=== PATIENT | female | born 1945 | race African-American/Black ===

== ENCOUNTER 2018-03-31 17:50 | Emergency (ER) | payer MEDICARE ==
--- NOTE | 2018-03-31 18:19 | ER Document Report ---
ED General - General Stated Complaint: FALL,MOUTH PAIN Time Seen by Provider: 03/31/18 18:11 Mode of Arrival: Medic Information source: Patient, [facility] Records Notes: 72-year-old female with hypertension, coronary artery disease, diabetes, angina, previous multiple CVAs presents after a trip and fall at home just prior to arrival. Patient currently complaining of left upper extremity pain, left knee pain and left-sided facial pain. Patient states that she was walking from the day and into the laundry room where there is a step up. Patient states that she failed to raise her leg and fell forward striking her face and chest against the tile floor. She denies loss of consciousness. She is on Plavix and aspirin. Patient denies any headache, blurred vision, nausea, vomiting, abdominal pain. Patient also denies any preceding chest pain, shortness of breath or lightheadedness. Patient does came in this morning visiting from [place]. - HPI Onset: Just prior to arrival Onset/Duration: Sudden Quality of pain: Achy, Stabbing Severity: Moderate Associated symptoms: Body/muscle aches, Chest pain. denies: Headache, Nausea, Vomiting, Shortness of breath, Weakness Exacerbated by: Movement Relieved by: Remaining still Similar symptoms previously: No Recently seen / treated by doctor: No - Related Data Allergies/Adverse Reactions: latex Allergy (Verified 03/31/18 18:24) Past Medical History - General Information source: Patient, Relative - Social History Smoking Status: Never Smoker Frequency of alcohol use: None Drug Abuse: None Lives with: Alone, Family Family History: Reviewed & Not Pertinent Patient has suicidal ideation: No Patient has homicidal ideation: No - Past Medical History Cardiac Medical History: Reports: Hx Coronary Artery Disease, Hx Hypertension, Hx Peripheral Vascular Disease, Other - Angina Neurological Medical History: Reports: Hx Cerebrovascular Accident Endocrine Medical History: Reports: Hx Diabetes Mellitus Type 2 Review of Systems - Review of Systems Notes: REVIEW OF SYSTEMS: CONSTITUTIONAL : Denies fever, chills, or sweats. Denies recent illness. Denies weight loss, recent hospitalizations. EENT: Denies visual changes, eye pain. Denies sore throat, oral lesions, difficulty swallowing. CARDIOVASCULAR: Denies chest pain. Denies palpitations. Denies lower extremity edema. RESPIRATORY: Denies cough. Denies shortness of breath, wheezing. GASTROINTESTINAL: Denies abdominal pain or distention. Denies nausea, vomiting, or diarrhea. Denies blood in vomitus, stools, or per rectum. Denies black, tarry stools. Denies constipation. GENITOURINARY: Denies difficulty urinating, painful urination, frequency, blood in urine, or vaginal discharge. MUSCULOSKELETAL: + Back pain, left shoulder and left knee pain. SKIN: + Abrasions to upper and lower lip, left side of the face. HEMATOLOGIC : Denies easy bruising or bleeding. LYMPHATIC: Denies swollen glands. NEUROLOGICAL: Denies confusion or altered mental status. Denies loss of consciousness. Denies dizziness or lightheadedness. Denies headache. Denies weakness or paralysis. Denies problems difficulty with ambulation, slurred speech. Denies sensory loss, numbness, or tingling. Denies seizures. PSYCHIATRIC: Denies anxiety or stress. Denies depression, suicidal ideation, or homicidal ideation. Denies visual or auditory hallucinations. Physical Exam - Vital signs Vitals: Resp Pulse Ox 18 100 03/31/18 18:02 03/31/18 18:02 - Notes Notes: PHYSICAL EXAMINATION: GENERAL: Well-appearing, well-nourished and in no acute distress. GCS 15 HEAD: Superficial abrasions to the upper and lower lip. Superficial abrasions along the left side of face. No cephalohematoma. Midface stable. No malocclusion. EYES: Pupils equal round and reactive to light, extraocular movements intact, sclera anicteric, conjunctiva are normal. ENT: Nares patent, oropharynx clear without exudates. Moist mucous membranes. No hemanotympanum . No blood in nares. No dental fracture NECK: Normal range of motion, supple without lymphadenopathy. Trachea midline. No midline tenderness of the cervical spine. LUNGS: Breath sounds clear to auscultation bilaterally and equal. No wheezes rales or rhonchi. Anterior chest wall pain with palpation, no ecchymosis, no crepitus. HEART: Regular rate and rhythm without murmurs. Pulses intact all throughout. ABDOMEN: Soft, nontender, nondistended abdomen. No guarding, no rebound. No masses appreciated. Musculoskeletal: Normal range of motion, no pitting or edema. No cyanosis. Hip non tender, stable. Pelvis stable. Left knee with superficial abrasion, mild ecchymosis. Full range of motion of the left knee although painful. Distal pulse intact. Left upper extremity tenderness along the humerus without obvious deformity. Radial pulse intact. NEUROLOGICAL: Cranial nerves grossly intact. Normal speech. Normal sensory, motor, and reflex exams. PSYCH: Normal mood, normal affect. SKIN: Superficial abrasions to the left face, upper and lower lip, left knee. Course - Re-evaluation Re-evalutation: Facial Bones CT 03/31/18 18:19 IMPRESSION: No acute osseous abnormality. Head CT 03/31/18 18:19 IMPRESSION: No evidence of acute intracranial abnormality. EVIDENCE OF ACUTE STROKE: NO. Cervical Spine CT 03/31/18 18:20 IMPRESSION: Facet arthropathy. No acute findings. Chest X-Ray 03/31/18 18:20 IMPRESSION: NO ACUTE RADIOGRAPHIC FINDING IN THE CHEST. Thoracic Spine CT 03/31/18 18:20 IMPRESSION: NORMAL CT OF THE THORACIC SPINE. Forearm X-Ray 03/31/18 18:23 IMPRESSION: NEGATIVE STUDY OF THE LEFT FOREARM. NO RADIOGRAPHIC EVIDENCE OF ACUTE INJURY. Humerus X-Ray 03/31/18 18:23 IMPRESSION: NEGATIVE STUDY OF THE LEFT HUMERUS. NO RADIOGRAPHIC EVIDENCE OF ACUTE INJURY. Knee X-Ray 03/31/18 18:23 IMPRESSION: NEGATIVE STUDY OF THE LEFT KNEE. NO RADIOGRAPHIC EVIDENCE OF ACUTE INJURY. Temp Pulse Resp BP Pulse Ox 98.3 F 18 157/54 H 99 03/31/18 20:24 03/31/18 20:01 03/31/18 20:01 03/31/18 20:01 03/31/18 18:28 72-year-old female presents after a trip and fall at home. Vital signs reviewed and patient is mildly hypertensive, not tachycardic or hypoxic. She does not appear toxic or dehydrated. She is in no acute distress. Exam is significant for superficial abrasions to the lips, left side of her face and left knee. Vital signs reviewed upon arrival and patient is afebrile, mildly hypertensive but not hypoxic or tachycardic. Presentation of a well appearing elderly patient in no acute distress, vitals within normal limits after a mechanical fall. Patient denies a syncopal episode as the cause for today's fall. No focal neurologic deficits on exam, no evidence of basilar skull fracture on exam without evidence of hemotympanum, raccoon eyes, or periauricular hematoma. No papilledema. Patient is on aspirin and Plavix. GCS is 15. No loss of co nsciousness. No episodes of vomiting. However, based on patient's age a CT of the head has been obtained which is negative for any acute intracranial bleed. Likewise, patient was unable to be clinically cleared due to age by [place] cervical spine criteria. A CT of the cervical spine was also obtained and likewise is negative for any acute fracture. No indication for further imaging of the cervical spine. Patient has no focal deformities or limited range of motion in any joint space. Patient does have pain with palpation to the anterior chest x-ray was obtained which showed no acute process. Abdominal exam is benign without any focal tenderness, shortness of breath, or bruising over the chest or abdominal wall. Patient has no flank tenderness. X-ray of the knee and humerus were obtained and also showed no acute fracture, dislocation. At this time will discharge with return precautions and follow-up recommendations. Verbal discharge instructions given a the bedside and opport unity for questions given. Medication warnings reviewed. Patient is in agreement with this plan and has verbalized understanding of return precautions and the need for primary care follow-up in the next 24-72 hours. 04/01/18 03:24 04/01/18 03:26 - Vital Signs Vital signs: Temp Pulse Resp BP Pulse Ox 98.3 F 18 157/54 H 99 03/31/18 20:24 03/31/18 20:01 03/31/18 20:01 03/31/18 20:01 - Diagnostic Test Radiology reviewed: Image reviewed, Reports reviewed Discharge - Discharge Clinical Impression: Fall Qualifiers: Encounter type: initial encounter Qualified Code(s): W19.XXXA - Unspecified fall, initial encounter Facial abrasion Qualifiers: Encounter type: initial encounter Qualified Code(s): S00.81XA - Abrasion of other part of head, initial encounter Chest wall contusion Qualifiers: Encounter type: initial encounter Laterality: unspecified laterality Qualified Code(s): S20.219A - Contusion of unspecified front wall of thorax, initial encounter Contusion of knee, left Qualifiers: Encounter type: initial encounter Qualified Code(s): S80.02XA - Contusion of left knee, initial encounter Strain of thoracic spine Qualifiers: Encounter type: initial encounter Qualified Code(s): S29.019A - Strain of muscle and tendon of unspecified wall of thorax, initial encounter Condition: Good Disposition: HOME, SELF-CARE Instructions: Abrasions of the Face ([facility]), Chest Wall Pain ([facility]), Contusion ([facility]) Additional Instructions: You have been seen in the Emergency Department (ED) today following a fall. Your workup today did not reveal any injuries that require you to stay in the hospital. You can expect, though, to be stiff and sore for the next several days. You can take Tylenol 1000 mg every 6 hours as needed for pain. You can a pply a hot pack or electric heating pad to the sore areas. You can also use topical "Aspercreme with lidocaine" to sore areas as needed. Please follow up with your primary care doctor as soon as possible regarding today's ED visit and your recent fall. Call your doctor or return to the ED if you develop a sudden or severe headache, confusion, slurred speech, facial droop, weakness or numbness in any arm or leg, extreme fatigue, vomiting more than two times, severe abdominal pain, or other symptoms that concern you. Forms: Elevated Blood Pressure
--- NOTE | 2018-03-31 19:05 | RADIOLOGY REPORT (SQ) ---
EXAM DESCRIPTION: CT HEAD WITHOUT COMPLETED DATE/TIME: 03/31/2018 6:51 pm REASON FOR STUDY: fall on blood thinnners COMPARISON: None. TECHNIQUE: Axial images acquired through the brain without intravenous contrast. Images reviewed wi th bone, brain and subdural windows. Additional sagittal and coronal reconstructions were generated. Images stored on PACS. All CT scanners at this facility use dose modulation, iterative reconstruction, and/or weight based d osing when appropriate to reduce radiation dose to as low as reasonably achievable (ALARA). [facility]: Dose Right [facility]: CareDose [facility]: Dose Right [facility]: Teradose 4D [facility]: Smart [employer] RADIATION DOSE: CT Rad equipment meets quality standard of care and radiation dose reduction techniq ues were employed. CTDIvol: 53.2 mGy. DLP: 991 mGy-cm. mGy. LIMITATIONS: None. FINDINGS: VENTRICLES: Normal size and contour. CEREBRUM: No masses. No hemorrhage. No midline shift. No evidence for acute infarction. Normal gra y/white matter differentiation. No areas of low density in the white matter. CEREBELLUM: No masses. No hemorrhage. No alteration of density. No evidence for acute infarction. EXTRAAXIAL SPACES: No fluid collections. No masses. ORBITS AND GLOBE: No intra- or extraconal masses. Normal contour of globe without masses. Prior cat aract surgery. CALVARIUM: No fracture. PARANASAL SINUSES: No fluid or mucosal thickening. SOFT TISSUES: No mass or hematoma. OTHER: No other significant finding. IMPRESSION: No evidence of acute intracranial abnormality. EVIDENCE OF ACUTE STROKE: NO. COMMENT: Quality ID # 436: Final reports with documentation of one or more dose reduction techniques (e.g., Automated exposure control, adjustment of the mA and/or kV according to patient size, use of iterative reconstruction technique) TECHNICAL DOCUMENTATION: JOB ID: [id number] [employer]- All Rights Reserved Reading location - IP/workstation name: [email or web address]
--- NOTE | 2018-03-31 19:07 | RADIOLOGY REPORT (SQ) ---
EXAM DESCRIPTION: CT CERVICAL SPINE WITHOUT COMPLETED DATE/TIME: 03/31/2018 6:53 pm REASON FOR STUDY: fall on blood thinnners COMPARISON: None. TECHNIQUE: Axial images acquired through the cervical spine without intravenous contrast. Images re viewed with lung, soft tissue and bone windows. Reconstructed coronal and sagittal MPR images review ed. Images stored on PACS. All CT scanners at this facility use dose modulation, iterative reconstruction, and/or weight based d osing when appropriate to reduce radiation dose to as low as reasonably achievable (ALARA). [facility]: Dose Right [facility]: CareDose [facility]: Dose Right [facility]: Teradose 4D [facility]: Smart [employer] RADIATION DOSE: mGy. LIMITATIONS: None. FINDINGS: ALIGNMENT: Anatomic. MINERALIZATION: Normal. VERTEBRAL BODIES: No fractures or dislocation. DISCS: No significant disc disease. FACETS, LATERAL MASSES, POSTERIOR ELEMENTS: Hypertrophic facet changes in the upper to mid cervical s pine. HARDWARE: None in the spine. VISUALIZED RIBS: No fractures. LUNG APICES AND SOFT TISSUES: No significant or acute findings. OTHER: No other significant finding. IMPRESSION: Facet arthropathy. No acute findings. TECHNICAL DOCUMENTATION: JOB ID: [id number] Quality ID # [id number]: Final reports with documentation of one or more dose reduction techniques (e.g., Au tomated exposure control, adjustment of the mA and/or kV according to patient size, use of iterative reconstruction technique) 2010 [employer]- All Rights Reserved Reading location - IP/workstation name: [email or web address]
--- NOTE | 2018-03-31 19:10 | RADIOLOGY REPORT (SQ) ---
EXAM DESCRIPTION: CT FACIAL AREA WITHOUT COMPLETED DATE/TIME: 03/31/2018 6:51 pm REASON FOR STUDY: fall on blood thinnners COMPARISON: Same day CT TECHNIQUE: Noncontrasted images through the facial bones and orbits windowed for bone and soft tissu e. Additional coronal and sagittal reconstructed images reviewed. All images stored on PACS. All CT scanners at this facility use dose modulation, iterative reconstruction, and/or weight based d osing when appropriate to reduce radiation dose to as low as reasonably achievable (ALARA). [facility]: Dose Right [facility]: CareDose [facility]: Dose Right [facility]: Teradose 4D [facility]: Smart [employer] RADIATION DOSE: CT Rad equipment meets quality standard of care and radiation dose reduction techniq ues were employed. CTDIvol: 30.4 mGy. DLP: 519 mGy-cm. mGy. LIMITATIONS: None. FINDINGS: FACIAL BONES: No fracture or bone lesion. ORBITS: Intact. No fracture. Symmetric intact globes and retroorbital soft tissues. Bilateral concetta ract surgery. PARANASAL SINUSES: Clear. No significant mucosal thickening, mass or fluid. No nasal polyps. Maxill ryan sinus outlets are patent. SOFT TISSUES: No mass or edema. INFERIOR BRAIN: Limited view. No acute findings. OTHER: Multiple missing teeth with maxillary dental hardware. IMPRESSION: No acute osseous abnormality. TECHNICAL DOCUMENTATION: JOB ID: [id number] Quality ID # [id number]: Final reports with documentation of one or more dose reduction techniques (e.g., Au tomated exposure control, adjustment of the mA and/or kV according to patient size, use of iterative reconstruction technique) 2010 [employer]- All Rights Reserved Reading location - IP/workstation name: [email or web address]
--- NOTE | 2018-03-31 19:10 | RADIOLOGY REPORT (SQ) ---
EXAM DESCRIPTION: CT THORACIC SPINE WITHOUT COMPLETED DATE/TIME: 03/31/2018 6:51 pm REASON FOR STUDY: fall on blood thinnners COMPARISON: None. TECHNIQUE: Axial images acquired through the thoracic spine without intravenous contrast. Images re viewed with lung, soft tissue and bone windows. Reconstructed coronal and sagittal MPR images review ed. Images stored on PACS. All CT scanners at this facility use dose modulation, iterative reconstruction, and/or weight based d osing when appropriate to reduce radiation dose to as low as reasonably achievable (ALARA). [facility]: Dose Right [facility]: CareDose [facility]: Dose Right [facility]: Teradose 4D [facility]: Smart [employer] RADIATION DOSE: CT Rad equipment meets quality standard of care and radiation dose reduction techniq ues were employed. CTDIvol: 110.3 mGy. DLP: 4851 mGy-cm. mGy. LIMITATIONS: None. FINDINGS: VISUALIZED LUNGS: No acute opacities. No pneumothorax. SOFT TISSUES: No soft tissue swelling. No masses. VERTEBRAL BODIES: No fractures. No dislocation. No acute findings. DISCS: No significant disc space narrowing. ALIGNMENT: Normal. TRANSVERSE PROCESSES, POSTERIOR ELEMENTS: No fractures. No dislocation. No acute findings. HARDWARE: None in the spine. VISUALIZED RIBS: No fractures. OTHER: No other significant finding. IMPRESSION: NORMAL CT OF THE THORACIC SPINE. TECHNICAL DOCUMENTATION: JOB ID: [id number] Quality ID # [id number]: Final reports with documentation of one or more dose reduction techniques (e.g., Au tomated exposure control, adjustment of the mA and/or kV according to patient size, use of iterative reconstruction technique) 2010 [employer] All Rights Reserved Reading location - IP/workstation name: [email or web address]
--- NOTE | 2018-03-31 19:19 | RADIOLOGY REPORT (SQ) ---
EXAM DESCRIPTION: CHEST 2 VIEWS COMPLETED DATE/TIME: 03/31/2018 7:05 pm REASON FOR STUDY: fall on blood thinnners COMPARISON: None. EXAM PARAMETERS: NUMBER OF VIEWS: two views TECHNIQUE: Digital Frontal and Lateral radiographic views of the chest acquired. RADIATION DOSE: NA LIMITATIONS: none FINDINGS: LUNGS AND PLEURA: No opacities, masses or pneumothorax. No pleural effusion. MEDIASTINUM AND HILAR STRUCTURES: No masses or contour abnormalities. HEART AND VASCULAR STRUCTURES: Heart normal size. No evidence for failure. BONES: No acute findings. HARDWARE: None in the chest. OTHER: No other significant finding. IMPRESSION: NO ACUTE RADIOGRAPHIC FINDING IN THE CHEST. TECHNICAL DOCUMENTATION: JOB ID: [id number] [employer]- All Rights Reserved Reading location - IP/workstation name: [email or web address]
--- NOTE | 2018-03-31 19:20 | RADIOLOGY REPORT (SQ) ---
EXAM DESCRIPTION: FOREARM LEFT COMPLETED DATE/TIME: 03/31/2018 7:05 pm REASON FOR STUDY: fall COMPARISON: None. NUMBER OF VIEWS: Two views. TECHNIQUE: Two radiographic images acquired of the left forearm, including elbow and wrist in at [address] one projection. LIMITATIONS: None. FINDINGS: MINERALIZATION: Normal. BONES: No acute fracture. No worrisome bone lesions. SOFT TISSUES: No obvious swelling or foreign body. OTHER: No other significant finding. IMPRESSION: NEGATIVE STUDY OF THE LEFT FOREARM. NO RADIOGRAPHIC EVIDENCE OF ACUTE INJURY. TECHNICAL DOCUMENTATION: JOB ID: [id number] [employer]- All Rights Reserved Reading location - IP/workstation name: [email or web address]
--- NOTE | 2018-03-31 19:20 | RADIOLOGY REPORT (SQ) ---
EXAM DESCRIPTION: HUMERUS LEFT COMPLETED DATE/TIME: 03/31/2018 7:05 pm REASON FOR STUDY: fall COMPARISON: None. NUMBER OF VIEWS: Two views. TECHNIQUE: Two radiographic images were acquired of the left humerus to include elbow and shoulder i n at least one projection. LIMITATIONS: None. FINDINGS: MINERALIZATION: Normal. BONES: No acute fracture or dislocation. No worrisome bone lesions. SOFT TISSUES: No obvious swelling or foreign body. OTHER: No other significant finding. IMPRESSION: NEGATIVE STUDY OF THE LEFT HUMERUS. NO RADIOGRAPHIC EVIDENCE OF ACUTE INJURY. TECHNICAL DOCUMENTATION: JOB ID: [id number] [employer]- All Rights Reserved Reading location - IP/workstation name: [email or web address]
--- NOTE | 2018-03-31 19:21 | RADIOLOGY REPORT (SQ) ---
EXAM DESCRIPTION: KNEE LEFT 3 VIEWS COMPLETED DATE/TIME: 03/31/2018 7:05 pm REASON FOR STUDY: fall COMPARISON: None. NUMBER OF VIEWS: Three views. TECHNIQUE: AP, lateral, and sunrise patella radiographic images acquired of the left knee. LIMITATIONS: None. FINDINGS: MINERALIZATION: Normal. BONES: No acute fracture or dislocation. No worrisome bone lesions. JOINT: No effusion. SOFT TISSUES: No soft tissue swelling. No radio-opaque foreign body. OTHER: No other significant finding. IMPRESSION: NEGATIVE STUDY OF THE LEFT KNEE. NO RADIOGRAPHIC EVIDENCE OF ACUTE INJURY. TECHNICAL DOCUMENTATION: JOB ID: [id number] [employer]- All Rights Reserved Reading location - IP/workstation name: [email or web address]
[2018-03-31 20:19] VITALS: BP 157/54
== END 2018-03-31 20:24 | disposition home or self-care (01) ==
LOC: EDBD → ER 17:50
DX: S29.012A Strain of muscle and tendon of back wall of thorax, initial encounter (principal); S20.219A Contusion of unspecified front wall of thorax, initial encounter; S80.02XA Contusion of left knee, initial encounter; S00.81XA Abrasion of other part of head, initial encounter; S00.511A Abrasion of lip, initial encounter; M79.602 Pain in left arm; M25.562 Pain in left knee; M25.512 Pain in left shoulder; M54.9 Dorsalgia, unspecified; R51 Headache; W01.0XXA Fall on same level from slipping, tripping and stumbling without subsequent striking against object, initial encounter; Y92.009 Unspecified place in unspecified non-institutional (private) residence as the place of occurrence of the external cause; E11.51 Type 2 diabetes mellitus with diabetic peripheral angiopathy without gangrene; I10 Essential (primary) hypertension; M12.9 Arthropathy, unspecified; I25.10 Atherosclerotic heart disease of native coronary artery without angina pectoris; Z79.82 Long term (current) use of aspirin; Z79.02 Long term (current) use of antithrombotics/antiplatelets; Z91.040 Latex allergy status; Z86.73 Personal history of transient ischemic attack (TIA), and cerebral infarction without residual deficits
CPT/HCPCS: 70450; 70486; 71046; 72125; 72128; 99284